=== PATIENT | female | born 1960 | race Asian ===

== ENCOUNTER 2018-08-16 06:53 | Day surgery (SDC) | payer OTHER ==
[2018-08-16] MEDS ORDERED: FENTAnyl 50 MCG/ML VIAL (08:36)
[2018-08-16] MEDS ORDERED: MIDAZOLAM 1 MG/ML 2 ML INJ ×2 (08:36)
== END 2018-08-16 13:33 | disposition home or self-care (01) ==
LOC: GIL 06:53
DX: Z12.11 Encounter for screening for malignant neoplasm of colon (principal); K64.8 Other hemorrhoids; I10 Essential (primary) hypertension
CPT/HCPCS: 45380; 88305